=== PATIENT | male | born 1970 | race Caucasian/White ===

== ENCOUNTER 2020-03-10 17:18 | Emergency (ER) | payer BC, SELFPAY ==
--- NOTE | 2020-03-10 17:20 | ECG_ITS ---
[facility] Test Date: 2020-03-10 Pat Name: Kamari Almendarez Jr Department: Room: Gender: Male Rn Mds Coordinator: : 1970 Requested By: Samanta Tarango Order Number: [id number] Rc MD: Denise Rider M.D. Measurements Intervals [place] Rate: 68 P: 24 MO: 174 QRS: -3 QRSD: 89 T: 31 QT: 381 QTc: 405 Interpretive Statements SINUS RHYTHM No previous ECG available for comparison Electronically Signed On 03-10-2020 20:39:18 CDT by Denise Rider M.D. [id number]
--- NOTE | 2020-03-10 17:20 | XRR_ITS ---
PROCEDURE INFORMATION: Exam: XR Chest, 1 View Exam date and time: 03/10/2020 5:40 PM Age: 49 years old Clinical indication: Chest pain; Additional info: Cp TECHNIQUE: Imaging protocol: XR of the chest Views: 1 view. COMPARISON: No relevant prior studies available. FINDINGS: Lungs: Unremarkable. No consolidation. Pleural space: Unremarkable. No pleural effusion. No pneumothorax. Heart/Mediastinum: Unremarkable. No cardiomegaly. Bones/joints: Unremarkable. XR/XR chest 1V portable [id number] IMPRESSION: No acute findings.
[2020-03-10 17:23] VITALS: BP 159/108; PULSE 74; RESP 18; TEMP 36.8; O2SAT 76; BMI 36.6
--- NOTE | 2020-03-10 19:00 | W.ED.CHESTPA ---
HPI - Chest Pain General: Chief Complaint: Chest Pain Stated Complaint: chest pain Time Seen by Provider: 03/10/20 18:54 Source: patient Mode of arrival: ambulatory Limitations: no limitations History of Present Illness: HPI narrative: 49-year-old male who states he started having chest pain a day ago. He states been a pressure type pain in the center of his chest. He denies any dyspnea or nausea. Patient denies any fevers. He denies any cough. Patient denies any worsening improving factors. He was hypertensive. He states does not see a primary care doctor and has no known medical problems. Associated symptoms: Deny abdominal pain, dyspnea, fever(s), nausea or vomiting Review of Systems Const: Denies: fever(s), chills, body aches or change in appetite Eyes: Denies: blurry vision or eye discomfort ENMT: Denies: throat pain or dental pain Card: Reports: chest pain Resp: Denies: dyspnea GI: Denies: abdominal pain, nausea, vomiting or diarrhea : Denies: dysuria Musc: Denies: neck pain or back pain Skin/Breast: Denies: rash Neuro: Denies: headache(s) Psych: Denies: depression Rush/Lymph: Denies: easy bruising All/Imm: Denies: urticaria PFSH ED PFSH: Family History Father CAD (coronary artery disease) Mother CAD (coronary artery disease) Social History Smoking and tobacco status: never smoked Alcohol intake: never Marital status: Physical Exam Const: COMMON NORMALS: no acute distress, patient oriented x3 and healthy appearing HENMT: COMMON NORMALS: normocephalic and atraumatic HEAD & SCALP: normocephalic and atraumatic Eye: COMMON NORMALS: Equal, round and reactive pupils present and EOMs intact bilaterally PUPIL: Yes Equal, round and reactive pupils present Neck/C-Spine: COMMON NORMALS: full ROM and supple Chest: COMMONS NORMALS: normal inspection of the chest and normal palpation of entire chest wall Resp: COMMON NORMALS: normal respiratory effort, No retractions, No use of accessory muscles and clear to auscultation bilaterally AUSCULTATION: clear to auscultation bilaterally Cardio: COMMON NORMALS: regular rate, regular rhythm and No murmurs present (Cardio) RATE: regular rate RHYTHM: regular rhythm GI: COMMON NORMALS: Normal to inspection, nondistended, normoactive bowel sounds present, Soft to palpation, non-tender and no masses PALPATION: Yes Soft to palpation Extremity: COMMON NORMALS: normal to inspection and full ROM Neuro: COMMON NORMALS: patient oriented x3, moves all extremities and no focal motor deficits Psych: COMMON NORMALS: mental status grossly normal, Normal thought process present and cooperative THOUGHT PROCESS: Normal thought process present Skin: COMMON NORMALS: no rashes or lesions noted and no wounds GENERAL SKIN EXAM: no rashes or lesions noted Course Vital Signs: Vital signs: Vital Signs Temperature 98.3 F 03/10/20 17:23 Pulse Rate 58 L 03/10/20 21:52 Respiratory Rate 16 03/10/20 21:52 Blood Pressure 113/72 03/10/20 21:52 Pulse Oximetry 97 03/10/20 21:52 MDM - Chest Pain MDM Narrative: Medical decision making narrative: Patient presents here with chest pain. Patient's initial and repeat troponins here are both negative and his EKGs are normal. He has no signs of pulmonary embolism and has not been tachycardic. Patient's pain is resolved here. We will set him up an appointment with cardiology. I did inform him if his pain worsens or returns he is to return immediately. He understands and agrees the plan. He has no signs of thoracic aneurysm or dissection. Lab Data: Labs: Lab Results 03/10/20 03/10/20 03/10/20 Range/Units 19:18 19:18 19:18 WBC 8.0 (4.0-10.0) 10^3/ uL RBC 4.95 (4.1-5.3) 10^6/u L Hgb 15.6 (11.7-16.6) g/dL Hct 46.4 (42.0-52.0) % MCV 93.7 (80-94) fL MCH 31.5 (28.0-34.0) pg MCHC 33.6 (30.0-36.0) g/dL RDW 12.4 (12.1-15.1) % Plt Count 175 (130-400) 10^3/c mm MPV 11.3 H (7.4-10.4) fL Neut % (Auto) 56.4 % Lymph % (Auto) 30.7 % [place]ata[place] % (Auto) 10.4 % Eos % (Auto) 1.5 % Baso % (Auto) 0.4 % Neut # (Auto) 4.53 (1.8-7.7) 10^3/u L Lymph # (Auto) 2.5 (0.8-4.8) 10^3/u L [place] # (Auto) 0.8 (0.2-0.9) 10^3/u L Eos # (Auto) 0.1 (0.0-0.8) 10^3/u L Baso # (Auto) 0.0 (0.0-0.1) 10^3/u L Nucleated RBC % (a uto) 0 % Nucleated RBCs # 0.0 /100WBC Sodium 135 L (136-145) mmol/L Potassium 4.5 (3.5-5.1) mmol/L Chloride 98 (98-107) mmol/L Carbon Dioxide 26 (22-29) mmol/L Anion Gap 15.5 (5-19) BUN 17 (6-20) mg/dL Creatinine 0.9 (0.7-1.2) mg/dL GFR Calculation 89.7 L (90-130) mL/min Glucose 94 (65-115) mg/dL Calculated Osmolal ity 281 L (285-295) mOsm/k g Calcium 10.1 (8.5-10.5) mg/dL Total Bilirubin 0.4 (0.15-1.2) mg/dL AST 29 (0-40) U/L ALT 38 (0-41) U/L Alkaline Phosphata se 55 (40-130) IU/L Troponin T Baselin e 11 (0-15) ng/L Troponin T 120 Min [place] (0-15) ng/L Delta Troponin T (0-10) ABS# Total Protein 7.3 (6.6-8.7) g/dL Albumin 4.5 (3.5-5.2) g/dL Globulin 2.8 (1.3-4.6) g/dL 03/10/20 Range/Units 21:20 WBC (4.0-10.0) 10^3/ uL RBC (4.1-5.3) 10^6/u L Hgb (11.7-16.6) g/dL Hct (42.0-52.0) % MCV (80-94) fL MCH (28.0-34.0) pg MCHC (30.0-36.0) g/dL RDW (12.1-15.1) % Plt Count (130-400) 10^3/c mm MPV (7.4-10.4) fL Neut % (Auto) % Lymph % (Auto) % [place] % (Auto) % Eos % (Auto) % Baso % (Auto) % Neut # (Auto) (1.8-7.7) 10^3/u L Lymph # (Auto) (0.8-4.8) 10^3/u L [place] # (Auto) (0.2-0.9) 10^3/u L Eos # (Auto) (0.0-0.8) 10^3/u L Baso # (Auto) (0.0-0.1) 10^3/u L Nucleated RBC % (a uto) % Nucleated RBCs # /100WBC Sodium (136-145) mmol/L Potassium (3.5-5.1) mmol/L Chloride (98-107) mmol/L Carbon Dioxide (22-29) mmol/L Anion Gap (5-19) BUN (6-20) mg/dL Creatinine (0.7-1.2) mg/dL GFR Calculation (90-130) mL/min Glucose (65-115) mg/dL Calculated Osmolal ity (285-295) mOsm/k g Calcium (8.5-10.5) mg/dL Total Bilirubin (0.15-1.2) mg/dL AST (0-40) U/L ALT (0-41) U/L Alkaline Phosphata se (40-130) IU/L Troponin T Baselin e (0-15) ng/L Troponin T 120 Min [place] 10.25 (0-15) ng/L Delta Troponin T -0.75 L (0-10) ABS# Total Protein (6.6-8.7) g/dL Albumin (3.5-5.2) g/dL Globulin (1.3-4.6) g/dL Imaging Data^: CXR: Attestation: I personally reviewed and interpreted this imaging study as follows: Radiologist's impression: [address] [address] XRay Report Signed Patient: Kamari Almendarez Jr Unit #: [id number] : 1970 Age/Sex: 49 / M ADM Date: 03/10/20 Loc: ER Room/Bed: Attending Dr: Ordering Provider/Ordering MD: Samanta Tarango MD Date of Service: 03/10/20 Procedure(s): XR chest 1V portable [id number] Accession Number(s): [id number] Report Number: [id number] PROCEDURE INFORMATION: Exam: XR Chest, 1 View Exam date and time: 03/10/2020 5:40 PM Age: 49 years old Clinical indication: Chest pain; Additional info: Cp TECHNIQUE: Imaging protocol: XR of the chest Views: 1 view. COMPARISON: No relevant prior studies available. FINDINGS: Lungs: Unremarkable. No consolidation. Pleural space: Unremarkable. No pleural effusion. No pneumothorax. Heart/Mediastinum: Unremarkable. No cardiomegaly. Bones/joints: Unremarkable. XR/XR chest 1V portable [id number] IMPRESSION: No acute findings. EKG Data^: EKG 1: Attestation: I personally reviewed and interpreted this EKG as follows: EKG interpretation date: 03/10/20 EKG interpretation time: 17:27 Interpretation: nsr hr [address] or t wave abnormalities qrs 89 qtc 398 Discharge Plan Discharge Patient Disposition: Home Clinical Impression: Chest pain Qualifiers: Chest pain type: unspecified Qualified Code(s): R07.9 - Chest pain, unspecified Condition: Stable Prescriptions: No Action Vitamin C 500 mg Tablet 250 mg PO DAILY RF: 0 magnesium glycinate 100 mg Tablet 100 mg PO DAILY RF: 0 potassium citrate 1 tab PO DAILY RF: 0 Discharge Orders: Discharge Order (Routine); Ordered 03/10/20 Ordered By: Samanta Tarango Referrals: Ahsan Chery M.D [Physician] - 1-3 days Discharge Diet: Advance as tolerated Discharge Activity: Resume usual activity Patient Instructions: Chest Pain (ED) Coding Level of Care Code ED Business Development Representative for Chg Fwd Exam Comprehensive
[2020-03-10 19:19] VITALS: BP 128/79; PULSE 60; RESP 16; O2SAT 96
--- NOTE | 2020-03-10 19:20 | ECG_ITS ---
[facility] Test Date: 2020-03-10 Pat Name: Kamari Almendarez Jr Department: Room: Gender: Male Splitting Machine Tender: : 1970 Requested By: Samanta Tarango Order Number: [id number] Rc MD: Denise Rider M.D. Measurements Intervals [place] Rate: 53 P: 18 NM: 175 QRS: 9 QRSD: 91 T: 15 QT: 419 QTc: 396 Interpretive Statements SINUS BRADYCARDIA Compared to ECG 03/10/2020 17:27:59 Sinus rhythm no longer present Electronically Signed On 03-10-2020 20:40:44 CDT by Denise Rider M.D. [email or web address]/[id number]
[2020-03-10 19:31] LABS: Basophils % 0.4 %; Eosinophils # 0.1 10^3/uL (0.0-0.8); Eosinophils % 1.5 %; Hematocrit 46.4 % (42.0-52.0); Hemoglobin 15.6 g/dL (11.7-16.6); Lymphocytes # 2.5 10^3/uL (0.8-4.8); Lymphocytes % 30.7 %; Mean Corpuscular HGB Conc 33.6 g/dL (30.0-36.0); Mean Corpuscular Hemoglobin 31.5 pg (28.0-34.0); Mean Corpuscular Volume 93.7 fL (80-94); Mean Platelet Volume 11.3 fL (7.4-10.4); Monocytes # 0.8 10^3/uL (0.2-0.9); Monocytes % 10.4 %; Neutrophils # 4.53 10^3/uL (1.8-7.7); Neutrophils % 56.4 %; Nucleated Red Blood Cells % 0 %; Platelet Count 175 10^3/cmm (130-400); Red Blood Count 4.95 10^6/uL (4.1-5.3); Red Cell Distribution Width 12.4 % (12.1-15.1)
[2020-03-10 19:55] LABS: Troponin(5th) Baseline 11 ng/L (0-15)
[2020-03-10] MEDS: aspirin 81 mg Chew Tablet 324 MG PO (19:59)
[2020-03-10] MEDS: nitroglycerin 0.4 mg sublingual Tablet SUBLINGUAL (19:59)
[2020-03-10 20:00] VITALS: BP 116/78; PULSE 55; RESP 16; O2SAT 97
[2020-03-10 20:12] LABS: Alanine Aminotransferase 38 U/L (0-41); Albumin Level 4.5 g/dL (3.5-5.2); Alkaline Phosphatase 55 IU/L (40-130); Anion Gap 15.5 (5-19); Aspartate Amino Transferase 29 U/L (0-40); Blood Urea Nitrogen 17 mg/dL (6-20); Calcium 10.1 mg/dL (8.5-10.5); Carbon Dioxide 26 mmol/L (22-29); Chloride 98 mmol/L (98-107); Globulin 2.8 g/dL (1.3-4.6); Glomerular Filtration Rate 89.7 mL/min (90-130); Glucose 94 mg/dL (65-115); Osmolality Calculated 281 mOsm/kg (285-295); Potassium 4.5 mmol/L (3.5-5.1); Sodium 135 mmol/L (136-145); Total Bilirubin 0.4 mg/dL (0.15-1.2); Total Protein 7.3 g/dL (6.6-8.7)
[2020-03-10 21:00] VITALS: BP 112/66; PULSE 58; RESP 16; O2SAT 97
[2020-03-10 21:48] LABS: Troponin 5 2HR 10.25 ng/L (0-15)
[2020-03-10 21:52] VITALS: BP 113/72; PULSE 58; RESP 16; O2SAT 97
[2020-03-10 21:54] LABS: Troponin 5 2HR Delta -0.75 ABS# (0-10)
[2020-03-10 22:10] VITALS: BP 136/83; PULSE 54; RESP 16; O2SAT 98
--- NOTE | 2020-03-13 09:02 | DCPLANNER ---
senior software development manager had message to schedule a follow up appointment for patient with [facility]. senior software development manager called [facility], spoke with Joy, a follow up appointment was scheduled for Sunday, March 15, 2020 at 3:[address] Chery. senior software development manager called patient and informed patient of the scheduled appointment. Patient stated that he would attend the appointment.
--- NOTE | 2020-03-18 16:24 | DCPLANNER ---
Patient had a follow up appointment scheduled for 03.15.20 with [facility] - patient did attend appointment.
== END 2020-03-10 22:12 | disposition home or self-care (01) ==
PROVIDERS: Emergency Provider Emergency Medicine
DX: R07.9 Chest pain, unspecified (principal)
CPT/HCPCS: 12345; 36415; 71045; 80053; 84484; 85025; 93005; 99283; 99284

== ENCOUNTER 2020-04-03 07:12 | Outpatient (CLI) | payer BC, SELFPAY ==
[2020-04-03 07:47] VITALS: BMI 36.6
--- NOTE | 2020-04-03 07:50 | NMCV_ITS ---
NM stef perf SPECT r/s* [id number] Erickson ShresthaKamari Age: 49 Gender: M : 1970 Exam Date: 04/03/2020 08:29 Ordering Phys: Ahsan Chery M.D ([email or web address]) Technologist: SUSHMA Howell Exam Location: [facility] Indications: Chest pain STRESS TEST [facility] IMAGE PROTOCOL Rest/Stress 1 Day Radiopharmaceutical Dose (mCi) Administration Site Administered by Rest: Tc-99m 10.9 IV Stress:Tc-99m 32.7 IV SUSHMA Howell Rest: 03-Apr-2020 60 Discovery 630 Stress: 03-Apr-2020 30 Discovery 630 Radiopharmaceutical was injected at 85 % maximum heart rate. Images obtained in supine and prone position. SPECT RESULTS Technical Quality: Good Raw Data Analysis: Normal Image Corrections: No attenuation or motion correction applied Summed Stress Score: 0 Summed Rest Score: 1 Summed Difference Score: 0 PERFUSION FINDINGS SPECT images demonstrate homogeneous tracer distribution throughout the myocardium. FUNCTIONAL RESULTS (calculated via Gated SPECT) Stress Image LV EF (%): 60 Stress EDV (mL):100 TID: 0.86 Stress ESV (mL):40 FUNCTIONAL FINDINGS: There is normal left ventricular systolic function. IMPRESSIONS 1. Normal myocardial perfusion imaging with no ischemia noted. 2. LV systolic function is normal with EF of 60%. Ahsan Chery MD (Electronically Signed) Final Date: 03 April 2020 19:04 S
--- NOTE | 2020-04-03 07:50 | ECG_ITS ---
[facility] Test Date: 2020-04-03 Pat Name: Kamari Almendarez Jr Department: Room: Gender: Male Wigs Salesperson: Amanda Hilton : 1970 Requested By: Ahsan Chery Order Number: [id number] Rc MD: Ahsan Chery M.D. Interpretive Statements NAME OF STUDY: EXERCISE SESTAMIBI STRESS TEST INDICATION: [Chest Pain, ] Exercise data: The patient was exercised by Lino protocol. Baseline heart rate was 73 bpm. Baseline blood pressure was 120/81 mmHg. Maximum predicted heart rate was 171 bpm. Maximum heart rate achieved was 148 bpm which was 86% of maximum predicted heart rate. Maximum blood pressure was 204/90 mmHg. Total exercise time was 9 minutes 57 seconds. Maximum METS achieved was 10.2. Maximum VO2 was 35.7. The reason for ending the test was completion of protocol and achieving target heart rate. Patient had no significant symptoms. Electrocardiogram: Baseline: Showed normal sinus rhythm, occasional premature atrial contractions, normal axis, nonspecific ST-T wave changes.T wave inversions in lead III Exercise: At peak exercise, non specific ST-T wave changes were noted, no suggestion of ischemia. Persistent T wave changes in lead III Recovery: During recovery. Heart rate dropped appropriately. Non specific ST-T wave changes in recovery suggestive of ischemia noted. Conclusion: 1. Exercise capacity is good 2. Heart rate response was appropriate. 3. Blood pressure response was appropriate. 4. Symptoms not suggestive of ischemia. 5. Electrocardiogram portion of stress test was not suggestive of ischemia. 6. Nuclear scan will be documented separately. Electronically Signed On 04-10-2020 9:51:51 BRAKE DRUM LATHE OPERATOR by Ahsan Chery M.D. [email or web address]/[id number]
[2020-04-03 09:29] VITALS: BP 148/48; PULSE 99
== END 2020-04-03 07:13 | disposition home or self-care (01) ==
PROVIDERS: Visit Provider Internal Medicine
DX: R07.9 Chest pain, unspecified (principal)
CPT/HCPCS: 78452; 93017; A9500

== ENCOUNTER 2022-11-22 09:57 | Outpatient (CLI) | payer BC, SELFPAY ==
--- NOTE | 2022-11-22 10:12 | US_ITS ---
WS: [id number] RENAL ULTRASOUND HISTORY: GROSS HEMATURIA COMPARISON: None available. TECHNIQUE: 2-D and color Doppler imaging of the kidney submitted. Right kidney: 11.1 cm x 6.6 cm x 5.7 cm. Cortex: 2.1 cm Normal echogenicity with no hydronephrosis or mass. Left kidney: 11.8 cm x 6.3 cm x 6.1 cm. Cortex: 1.7 cm Normal echogenicity with no hydronephrosis or mass. Aorta: Normal. Urinary Bladder: Normal distention. US/US renal BI* [id number] IMPRESSION: Normal renal ultrasound.
--- NOTE | 2022-11-22 10:12 | XR_ITS ---
WS: [id number] XR abdomen 1V* [id number] REASON FOR EXAM: L NEPHROLITHIASIS FINDINGS: Previously demonstrated left renal and left ureteral calculi 10/04/2022, no longer identifiable. No ot her urinary tract calculi identified. No other abdominal or pelvic abnormality. XR/XR abdomen 1V* [id number] IMPRESSION: Previously demonstrated left-sided urinary tract calculi no longer identifiable .
== END 2022-11-22 09:58 | disposition home or self-care (01) ==
PROVIDERS: PCP Family Medicine; Visit Provider Urology
DX: R31.0 Gross hematuria (principal); N20.0 Calculus of kidney
CPT/HCPCS: 74018; 76770